=== PATIENT | male | born 1965 | race Caucasian/White ===

== ENCOUNTER 2016-12-06 17:41 | Emergency (ER) | payer MEDICAID ==
[~2016-12-06] VITALS: Ht 165.1 cm; Wt 68.3 kg
[2016-12-06] MEDS ORDERED: KETOROLAC 30 MG/1 ML IM ONE (18:30)
[2016-12-06] MEDS ORDERED: PROCHLORPERAZINE 5 MG/ML, 2ML IM ONE (18:30)
[2016-12-06] MEDS ORDERED: SUMATRIPTAN 6MG/0.5ML SQ ONE ×2 (18:30→18:39)
[2016-12-06] MEDS ORDERED: PROCHLORPERAZINE 5 MG/ML, 2ML ONE (18:39)
[2016-12-06] MEDS ORDERED: KETOROLAC 30 MG/1 ML ONE (18:39)
[2016-12-06 20:30] VITALS: BP 181/119
== END 2016-12-06 22:42 | disposition home or self-care (01) ==
LOC: ED 19:08
DX: G43.C0 Periodic headache syndromes in child or adult, not intractable (principal); I10 Essential (primary) hypertension
CPT/HCPCS: 70450; 96372; 99284; J0780; J1885; J3030